=== PATIENT | male | born 1985 | race African-American/Black ===

== ENCOUNTER 2017-06-28 01:28 | Emergency (ER) | payer SELFPAY, BC ==
[2017-06-28] MEDS: predniSONE 20 MG TABLET PO (03:00)
[2017-06-28] MEDS: ALBUTEROL SULFATE 2.5 MG/3 ML NEBU. CONT NEB (03:16)
[2017-06-28] MEDS ORDERED: ONDANSETRON PF 4 MG/2 ML VIAL. IV (04:00)
[2017-06-28] MEDS ORDERED: ACETAMINOPHEN 325 MG TABLET. PO (04:00)
[2017-06-28] MEDS ORDERED: IV NORMAL SALINE 1000ML BAG 1,000 ML IV (04:00)
[2017-06-28] MEDS ORDERED: IPRATRPIUM/ALBUTEROL 0.5/2.5MG 3 ML NEBU. NEB (08:00)
== END 2017-06-28 05:00 | disposition home or self-care (01) ==
LOC: ER 01:28
DX: J45.909 Unspecified asthma, uncomplicated (principal); J11.1 Influenza due to unidentified influenza virus with other respiratory manifestations
CPT/HCPCS: 94644; 99285; J7512; J7613

== ENCOUNTER 2017-09-11 23:56 | Emergency (ER) | payer OTHER ==
[2017-09-12] MEDS: ACETAMINOPHEN 500 MG TABLET PO (00:56)
== END 2017-09-12 01:40 | disposition home or self-care (01) ==
LOC: ER 23:56
DX: S06.0X0A Concussion without loss of consciousness, initial encounter (principal); J45.909 Unspecified asthma, uncomplicated; W22.8XXA Striking against or struck by other objects, initial encounter; Y93.89 Activity, other specified; Y92.89 Other specified places as the place of occurrence of the external cause; Y99.8 Other external cause status
CPT/HCPCS: 70450; 99284-25

== ENCOUNTER 2018-02-06 22:02 | Emergency (ER) | payer SELFPAY ==
[~2018-02-06] VITALS: Ht 167.6 cm; Wt 117.9 kg
[~2018-02-06 22:02] MED LIST: CYCL10TA2 PO; DIAZ5TAB PO; DICY10CA53 PO; HYDR-971 PO; HYDR5SUS PO; IBUP-1007 PO; NAPR-695 PO; ONDA4TAB7 PO; PRED50TA PO; PROAIR HFA8.5 GM INH; PSEU120T58 PO
[2018-02-06 22:20] VITALS: BP 155/74
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
== END 2018-02-07 | disposition home or self-care (01) ==
LOC: ER 22:02
DX: R07.89 Other chest pain (principal); J45.909 Unspecified asthma, uncomplicated
CPT/HCPCS: 71046; 99284

== ENCOUNTER 2018-11-06 23:45 | Emergency (ER) | payer SELFPAY ==
[~2018-11-06] VITALS: Ht 166.4 cm; Wt 120.2 kg
[~2018-11-06 23:45] MED LIST changes: +ALBU2.5V8 INH; +HYDR-3164 PO; -HYDR-971 PO; -PROAIR HFA8.5 GM INH
[2018-11-07] MEDS ORDERED: NAPR-514 PO (00:15)
--- NOTE | 2018-11-07 00:15 | PHYS DOC ---
Past Medical History Past Medical History: Asthma Past Surgical History: No Surgical History Alcohol Use: Occasionally Drug Use: None Adult General Chief Complaint Chief Complaint: CHEST PAIN HPI HPI 33-year-old male presents with several hour history of sharp right sided chest pain. He states it hurts when he takes a deep breath. Also when he stretches his arms out. He denies any fever chills or sweats. He denies any cough or congestion. He denies hemoptysis. He denies any trauma. Patient states he did use Motrin at home with some relief.[] Review of Systems Review of Systems Constitutional: Denies fever or chills [] Eyes: Denies change in visual acuity, redness, or eye pain [] HENT: Denies nasal congestion or sore throat [] Respiratory: Per history of present illness[] Cardiovascular: No additional information not addressed in HPI [] GI: Denies abdominal pain, nausea, vomiting, bloody stools or diarrhea [] : Denies dysuria or hematuria [] Musculoskeletal: Denies back pain or joint pain [] Integument: Denies rash or skin lesions [] Neurologic: Denies headache, focal weakness or sensory changes [] Endocrine: Denies polyuria or polydipsia [] All other systems were reviewed and found to be within normal limits, except as documented in this note. Current Medications Current Medications Current Medications Medications (Trade) Dose Ordered Sig/Haley Start Time Stop Time Status Last Admin Dose Admin Ketorolac Tromethamine (Toradol Im) 60 mg 1X ONCE 11/07/18 00:30 11/07/18 00:31 Allergies Allergies Allergies Coded Allergies Type Severity Reaction Last Updated Verified No Known Drug Allergies 04/20/14 No Physical Exam Physical Exam Constitutional: Well developed, well nourished, no acute distress, non-toxic appearance. [] HENT: Normocephalic, atraumatic, bilateral external ears normal, oropharynx moist, no oral exudates, nose normal. [] Eyes: PERRLA, EOMI, conjunctiva normal, no discharge. [] Neck: Normal range of motion, no tenderness, supple, no stridor. [] Cardiovascular:Heart rate regular rhythm, no murmur [] Lungs & Thorax: Bilateral breath sounds clear to auscultation [] Abdomen: Bowel sounds normal, soft, no tenderness, no masses, no pulsatile masses. [] Skin: Warm, dry, no erythema, no rash. [] Back: No tenderness, no CVA tenderness. [] Extremities: No tenderness, no cyanosis, no clubbing, ROM intact, no edema. [] Neurologic: Alert and oriented X 3, normal motor function, normal sensory function, no focal deficits noted. [] Psychologic: Affect normal, judgement normal, mood normal. [] EKG EKG [] Interpretation Time: EKG: Normal sinus rhythm rate of [address]-T changes Radiology/Procedures Radiology/Procedures [] Impressions: Chest x-ray: No acute findings as interpreted by me Course & Med Decision Making Course & Med Decision Making Pertinent Labs and Imaging studies reviewed. (See chart for details) [ED course: Evaluation reveals a healthy 33-year-old male in no distress. His EKG was completely normal as was his chest x-ray. He was given Toradol 60 mg IM I suspect that this is pleuritic in nature. I've encouraged patient to continue Motrin at home. Dragon Disclaimer Dragon Disclaimer This electronic medical record was generated, in whole or in part, using a voice recognition dictation system. Departure Departure Impression: Primary Impression: Pleurisy Disposition: 01 HOME, SELF-CARE Condition: GOOD Referrals: JUDIT GARRETT MD (PCP) Patient Instructions: Pleurisy Additional Instructions: Return to the emergency department with any new or concerning symptoms Scripts Naproxen (NAPROXEN) 500 Mg Tablet 1 TAB PO BID PRN for PAIN, #30 TAB 1 Refill Prov: CHERRY BURNHAM DO 11/07/18 CHERRY BURNHAM DO Nov 07, 2018 00:15
[2018-11-07 00:24] VITALS: BP 166/87
[2018-11-07] MEDS ORDERED: KETOROLAC 60 MG/2 ML VIAL. IM ONE (00:30)
--- NOTE | 2018-11-07 02:52 | EKG ---
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
--- NOTE | 2018-11-07 08:21 | RAD ---
EXAM: CHEST 1 VIEW. HISTORY: Chest pain. COMPARISON: 02/06/2018. FINDINGS: A frontal view of the chest is obtained. There are no confluent infiltrates. There is no pneumothorax or pleural effusion. The heart is not enlarged. IMPRESSION: 1. No confluent infiltrates. Electronically signed by: Jorge Luis Hector MD (11/07/2018 8:18 AM) [facility]
== END 2018-11-07 00:30 | disposition home or self-care (01) ==
LOC: ER 23:45
DX: R09.1 Pleurisy (principal); J45.909 Unspecified asthma, uncomplicated
CPT/HCPCS: 71045; 93005; 96372; 99284; J1885

== ENCOUNTER 2018-12-05 11:13 | Emergency (ER) | payer SELFPAY ==
[~2018-12-05] VITALS: Ht 167.6 cm; Wt 122.5 kg
[~2018-12-05 11:13] MED LIST changes: +NAPR-514 PO
--- NOTE | 2018-12-05 11:35 | PHYS DOC ---
Past Medical History Past Medical History: Asthma, Bronchitis Past Surgical History: No Surgical History Alcohol Use: Occasionally Drug Use: None Adult General Chief Complaint Chief Complaint: Palpitations HPI HPI Patient is a 33-year-old male who presents to the emergency department for evaluation. He states he was resting, when he suddenly awakened with palpitations, feeling that his heart was beating very fast, and at the same time he developed paresthesias in his right arm. He states his symptoms lasted about a minute and then resolved, and he is feeling much better at this time. He did not have any chest pain at any time, nausea, vomiting, diaphoresis, headache, or vision changes. He does admit to drinking some alcohol yesterday evening, but states he drinks moderately, not heavily. He denies any other complaints at this time. There are no alleviating or exacerbating factors to his symptoms. He has not had any similar symptoms in the past. Review of Systems Review of Systems Constitutional: Denies fever or chills [] Eyes: Denies change in visual acuity, redness, or eye pain [] HENT: Denies nasal congestion or sore throat [] Respiratory: Denies cough or shortness of breath [] Cardiovascular: No additional information not addressed in HPI [] GI: Denies abdominal pain, nausea, vomiting, bloody stools or diarrhea [] : Denies dysuria or hematuria [] Musculoskeletal: Denies back pain or joint pain [] Integument: Denies rash or skin lesions [] Neurologic: Denies headache, focal weakness or current sensory changes [] Endocrine: Denies polyuria or polydipsia [] All other systems were reviewed and found to be within normal limits, except as documented in this note. Allergies Allergies Allergies Coded Allergies Type Severity Reaction Last Updated Verified No Known Drug Allergies 04/20/14 No Physical Exam Physical Exam PHYSICAL EXAM: CONSTITUTIONAL: Well developed, well nourished HEAD: normocephalic, atraumatic EENT: PERRL, EOMI. Conjunctivae normal color, sclerae non-icteric; moist mucous membranes. NECK: Supple, non-tender; no meningismus. LUNGS: Lungs CTA, breathing even and unlabored. Normal air movement. HEART: Regular rate and rhythm, no murmur CHEST: No deformity; non-tender ABDOMEN: The abdomen is soft, and non-tender, no masses or bruits. EXTREM: Normal ROM; no deformity, no calf tenderness. Normal pulses palpable in all extremities. There is no pedal edema. SKIN: No rash; no diaphoresis NEURO: Alert; normal speech and cognition; CN's grossly intact; strength grossly intact without focal deficit. Sensation is grossly intact and symmetrical. BACK: No CVA TTP. Current Patient Data Vital Signs Vital Signs Date Time Temp Pulse Resp B/P (MAP) Pulse Ox O2 Delivery O2 Flow Rate FiO2 12/05/18 11:28 97.4 46 18 144/74 (97) 99 Room Air 97.4 Lab Values Laboratory Tests Test 12/05/18 11:50 White Blood Count 5.8 x10^3/uL (4.0-11.0) Red Blood Count 5.61 x10^6/uL (4.30-5.70) Hemoglobin 15.3 g/dL (13.0-17.5) Hematocrit 44.9 % (39.0-53.0) Mean Corpuscular Volume 80 fL (79-100) Mean Corpuscular Hemoglobin 27 pg (25-35) Mean Corpuscular Hemoglobin Concent 34 g/dL (31-37) Red Cell Distribution Width 13.3 % (11.5-14.5) Platelet Count 283 x10^3/uL (140-400) Neutrophils (%) (Auto) 50 % (31-73) Lymphocytes (%) (Auto) 37 % (24-48) Monocytes (%) (Auto) 10 % (0-9) H Eosinophils (%) (Auto) 3 % (0-3) Basophils (%) (Auto) 1 % (0-3) Neutrophils # (Auto) 2.9 x10^3uL (1.8-7.7) Lymphocytes # (Auto) 2.1 x10^3/uL (1.0-4.8) Monocytes # (Auto) 0.6 x10^3/uL (0.0-1.1) Eosinophils # (Auto) 0.2 x10^3/uL (0.0-0.7) Basophils # (Auto) 0.1 x10^3/uL (0.0-0.2) Laboratory Tests 12/05/18 11:50 EKG EKG [Sinus bradycardia at a rate of 44 beats for minute, normal axis, normal intervals. There are no acute ischemic ST/T changes.] Radiology/Procedures Radiology/Procedures [] Course & Med Decision Making Course & Med Decision Making Pertinent Lab studies reviewed. (See chart for details) []Patient remains stable. I discussed test results, the need for close follow- up, and return precautions. No ectopy noted on monitoring. The patient's heart rate is in the 50s. Dragon Disclaimer Dragon Disclaimer This electronic medical record was generated, in whole or in part, using a voice recognition dictation system. Departure Departure Impression: Primary Impression: Palpitations Disposition: 01 HOME, SELF-CARE Condition: STABLE Referrals: JUDIT GARRETT MD (PCP) ELLO MCKINLEY MD Patient Instructions: Palpitations JUDIT SALAZAR MD Dec 05, 2018 11:35
[2018-12-05 12:05] LABS: BASO # 0.1 x10^3/uL (0.0-0.2); BASO % 1 % (0-3); EOS # 0.2 x10^3/uL (0.0-0.7); EOS % 3 % (0-3); HEMATOCRIT 44.9 % (39.0-53.0); HEMOGLOBIN 15.3 g/dL (13.0-17.5); LYMPH # 2.1 x10^3/uL (1.0-4.8); LYMPH % 37 % (24-48); MEAN CORPUSCULAR HEMOGLOBIN 27 pg (25-35); MEAN CORPUSCULAR HGB CONC 34 g/dL (31-37); MEAN CORPUSCULAR VOLUME 80 fL (79-100); MONO # 0.6 x10^3/uL (0.0-1.1); MONO % 10 % (0-9); NEUT # 2.9 x10^3uL (1.8-7.7); NEUT % 50 % (31-73); PLATELET COUNT 283 x10^3/uL (140-400); RED BLOOD COUNT 5.61 x10^6/uL (4.30-5.70); RED CELL DISTRIBUTION WIDTH 13.3 % (11.5-14.5); WHITE BLOOD COUNT 5.8 x10^3/uL (4.0-11.0)
[2018-12-05 12:16] LABS: GFR 105.5; POTASSIUM 4.1 mmol/L (3.5-5.1)
[2018-12-05 12:21] LABS: ALBUMIN 3.8 g/dL (3.4-5.0); MAGNESIUM 2.1 mg/dL (1.8-2.4); TOTAL BILIRUBIN 0.4 mg/dL (0.2-1.0); TOTAL PROTEIN 7.6 g/dL (6.4-8.2)
[2018-12-05 12:29] LABS: FREE T4 1.21 ng/dL (0.76-1.46); THYROID STIM HORMONE (TSH) 1.565 uIU/mL (0.358-3.74)
[2018-12-05 12:51] VITALS: BP 141/72
--- NOTE | 2018-12-05 15:37 | EKG ---
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
== END 2018-12-05 13:05 | disposition home or self-care (01) ==
LOC: ER 11:13
DX: R00.2 Palpitations (principal); R20.2 Paresthesia of skin; J45.909 Unspecified asthma, uncomplicated
CPT/HCPCS: 36415; 80053; 83735; 84439; 84443; 85025; 93005; 99285-25

== ENCOUNTER 2018-12-09 02:07 | Emergency (ER) | payer SELFPAY ==
[~2018-12-09] VITALS: Ht 167.6 cm; Wt 122.5 kg
[2018-12-09 02:41] LABS: BILIRUBIN,URINE NEGATIVE (NEG); CLARITY,URINE CLEAR; COLOR,URINE YELLOW; NITRITE,URINE NEGATIVE (NEG); PH,URINE 6.5; PROTEIN,URINE NEGATIVE (NEG-TRACE)
[2018-12-09 02:46] LABS: BACTERIA,URINE 0 /HPF (0-FEW); RBC,URINE 0 /HPF (0-2); SQUAMOUS EPITHELIAL CELL,UR OCC /LPF; WBC,URINE 0 /HPF (0-4)
[2018-12-09 02:48] VITALS: BP 195/84
--- NOTE | 2018-12-09 04:01 | PHYS DOC ---
Past Medical History Past Medical History: Asthma, Bronchitis Past Surgical History: No Surgical History Alcohol Use: Occasionally Drug Use: None Adult General Chief Complaint Chief Complaint: WEAKNESS/GENERALIZED HPI HPI Patient is a 33 year old male who is presenting with chief complaint of dizziness intermittent tingling of his extremities. He's been dealing with these symptoms for a long time actually came to the ER a few days ago he had a normal lab workup he was reassured and discharged if she went [facility] the next day so is been to the ER 3 times in 4 days for similar symptoms. He denies any headache he says he just feels lightheaded when he works too much when he standing up for too long he has intermittent tingling of his hand and foot usually on the right currently really not not tingling that much but he was just wanted to get checked out to make sure everything was okay. Review of Systems Review of Systems Constitutional: Denies fever or chills [] Eyes: Denies change in visual acuity, redness, or eye pain [] HENT: Denies nasal congestion or sore throat [] Respiratory: Denies cough or shortness of breath [] Cardiovascular: No additional information not addressed in HPI [] GI: Denies abdominal pain, nausea, vomiting, bloody stools or diarrhea [] : Denies dysuria or hematuria [] Musculoskeletal: Denies back pain or joint pain [] Integument: All other systems were reviewed and found to be within normal limits, except as documented in this note. Allergies Allergies Allergies Coded Allergies Type Severity Reaction Last Updated Verified No Known Drug Allergies 04/20/14 No Physical Exam Physical Exam Constitutional: Well developed, well nourished, no acute distress, non-toxic appearance. [] HENT: Normocephalic, atraumatic, bilateral external ears normal, oropharynx moist, no oral exudates, nose normal. [] Eyes: PERRLA, EOMI, conjunctiva normal, no discharge. [] Neck: Normal range of motion, no tenderness, supple, no stridor. [] Cardiovascular:Heart rate regular rhythm, no murmur [] Lungs & Thorax: Bilateral breath sounds clear to auscultation [] Abdomen: Bowel sounds normal, soft, no tenderness, no masses, no pulsatile masses. [] Skin: Warm, dry, no erythema, no rash. [] Back: No tenderness, no CVA tenderness. [] Extremities: No tenderness, no cyanosis, no clubbing, ROM intact, no edema. [] No edema, pulses Neurologic: Alert and oriented X 3, normal motor function, normal sensory function, no focal deficits noted. []Uivlce-dwwo-smwkgj intact sensations intact neuro exam is normal gait is normal speech is normal Psychologic: Affect normal, judgement normal, mood normal. [] Current Patient Data Vital Signs Vital Signs Date Time Temp Pulse Resp B/P (MAP) Pulse Ox O2 Delivery O2 Flow Rate FiO2 12/09/18 02:48 54 12/09/18 02:15 98.1 20 168/91 (116) 99 98.1 Lab Values Laboratory Tests Test 12/09/18 02:15 Urine Collection Type Unknown Urine Color Yellow Urine Clarity Clear Urine pH 6.5 Urine Specific [place] 1.020 Urine Protein Negative mg/dL (NEG-TRACE) Urine Glucose (UA) Negative mg/dL (NEG) Urine Ketones (Stick) Negative mg/dL (NEG) Urine Blood Negative (NEG) Urine Nitrite Negative (NEG) Urine Bilirubin Negative (NEG) Urine Urobilinogen Dipstick 1.0 mg/dL (0.2 mg/dL) Urine Leukocyte Esterase Negative (NEG) Urine RBC 0 /HPF (0-2) Urine WBC 0 /HPF (0-4) Urine Squamous Epithelial Cells Occ /LPF Urine Bacteria 0 /HPF (0-FEW) EKG EKG []Sinus bradycardia rate of 48 no acute ischemic changes noted interpreted by me the timing encounter Radiology/Procedures Radiology/Procedures [] Course & Med Decision Making Course & Med Decision Making Pertinent Labs and Imaging studies reviewed. (See chart for details) []33-year-old male presenting with likely anxiety type reaction. 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 No objective neurologic findings were identified he had a normal lab workup just a few days ago I don't think we need to repeat that we did a urinalysis chest nontender been done and that appeared normal patient was reassured and discharged in stable condition. Dragon Disclaimer Dragon Disclaimer This electronic medical record was generated, in whole or in part, using a voice recognition dictation system. Departure Departure Impression: Primary Impression: Paresthesias Disposition: HOME, SELF-CARE Condition: STABLE Referrals: JUDIT GARRETT MD (PCP) Patient Instructions: Carmen, [id number] DONNELL SALAS MD Dec 09, 2018 04:01
--- NOTE | 2018-12-09 09:08 | EKG ---
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
[2018-12-13] MEDS ORDERED: ASPI-612 PO (14:12)
== END 2018-12-09 03:05 | disposition home or self-care (01) ==
LOC: ER 02:07
DX: R20.2 Paresthesia of skin (principal); R42 Dizziness and giddiness; R00.1 Bradycardia, unspecified; J45.909 Unspecified asthma, uncomplicated
CPT/HCPCS: 81001; 93005; 99285-25

== ENCOUNTER 2019-01-30 01:53 | Emergency (ER) | payer BC ==
[~2019-01-30] VITALS: Ht 167.6 cm; Wt 120.2 kg
[~2019-01-30 01:53] MED LIST changes: +ASPI-612 PO
[2019-01-30 02:10] VITALS: BP 146/77
[2019-01-30] MEDS ORDERED: IBUP-1060 PO (02:54)
[2019-01-30] MEDS ORDERED: CYCL10TA2 PO (02:54)
--- NOTE | 2019-01-30 02:55 | PHYS DOC ---
Past Medical History Past Medical History: Asthma, Bronchitis Past Surgical History: No Surgical History Alcohol Use: Occasionally Drug Use: None Adult General Chief Complaint Chief Complaint: LOWER EXT PAIN HPI HPI Patient is a 33 year old male who presents with left hip pain. Patient states he was sitting on the bench after playing basketball and suddenly felt a pain in left lateral thigh few hours prior to arrival as a constant pain that getting worse with movement. Patient denies radiation of pain and focal neurodeficit. Patient states he has had history of back pain previously with his pain is different tonight. Review of Systems Review of Systems Constitutional: Denies fever or chills [] Eyes: Denies change in visual acuity, redness, or eye pain [] HENT: Denies nasal congestion or sore throat [] Respiratory: Denies cough or shortness of breath [] Cardiovascular: No additional information not addressed in HPI [] GI: Denies abdominal pain, nausea, vomiting, bloody stools or diarrhea [] : Denies dysuria or hematuria [] Musculoskeletal: Denies back pain reports joint pain [] Integument: Denies rash or skin lesions [] Neurologic: Denies headache, focal weakness or sensory changes [] Endocrine: Denies polyuria or polydipsia [] All other systems were reviewed and found to be within normal limits, except as documented in this note. Current Medications Current Medications Current Medications Medications (Trade) Dose Ordered Sig/Haley Start Time Stop Time Status Last Admin Dose Admin Cyclobenzaprine HCl (Flexeril) 10 mg 1X ONCE 01/30/19 03:00 01/30/19 03:01 DC 01/30/19 02:58 10 MG Ibuprofen (Motrin) 800 mg 1X ONCE 01/30/19 03:00 01/30/19 03:01 DC 01/30/19 02:58 800 MG Allergies Allergies Allergies Coded Allergies Type Severity Reaction Last Updated Verified No Known Drug Allergies 04/20/14 No Physical Exam Physical Exam Constitutional: Well developed, well nourished, mild distress, non-toxic appearance. [] HENT: Normocephalic, atraumatic. Eyes: PERRLA, EOMI, conjunctiva normal, no discharge. [] Neck: Normal range of motion, no tenderness, supple, no stridor. [] Cardiovascular:Heart rate regular rhythm, no murmur [] Lungs & Thorax: Bilateral breath sounds clear to auscultation [] Abdomen: Bowel sounds normal, soft, no tenderness, no masses, no pulsatile masses. [] Skin: Warm, dry, no erythema, no rash. [] Back: No midline tenderness, no CVA tenderness. [] Extremities: No full making, no contusion or ecchymosis, left upper thigh painful range of motion, no clubbing, no edema. [] Neurologic: Alert and oriented X 3, no focal deficits noted. [] Psychologic: Affect normal, judgement normal, mood normal. [] Current Patient Data Vital Signs Vital Signs Date Time Temp Pulse Resp B/P (MAP) Pulse Ox O2 Delivery O2 Flow Rate FiO2 01/30/19 02:10 98.1 98 55 146/77 (100) 98 Room Air 98.1 EKG EKG [] Radiology/Procedures Radiology/Procedures Left hip x-ray interpreted by me and did not show acute finding. Course & Med Decision Making Course & Med Decision Making Pertinent Imaging studies reviewed. (See chart for details) Evaluation of patient in ER showed 33-year-old male patient with complaining of left eye pain after playing basketball. Patient had unremarkable physical exam and x-ray. Plan discharge patient home with diagnosis of muscle strain. Dragon Disclaimer Dragon Disclaimer This electronic medical record was generated, in whole or in part, using a voice recognition dictation system. Departure Departure Impression: Primary Impression: Muscle strain of left thigh Disposition: 01 HOME, SELF-CARE (at 0253) Condition: STABLE Referrals: JOVANY ALERGE MD (PCP) Patient Instructions: Muscle Strain Additional Instructions: Apply ice on affected area Follow-up with your primary care physician in 3-5 days Return to ER if not getting better Scripts Ibuprofen (IBUPROFEN) 800 Mg Tablet 800 MG PO PRN Q8HRS PRN for INFLAMMATION, #20 TAB Prov: VIRI RICE MD 01/30/19 Cyclobenzaprine Hcl (CYCLOBENZAPRINE HCL) 10 Mg Tablet 1 TAB PO TID, #21 TAB Prov: VIRI RICE MD 01/30/19 Problem Qualifiers Primary Impression: Muscle strain of left thigh Encounter type: initial encounter Qualified Codes: S76.912A - Strain of unspecified muscles, fascia and tendons at thigh level, left thigh, initial encounter VIRI RICE MD Jan 30, 2019 02:55
[2019-01-30] MEDS ORDERED: CYCLOBENZAPRINE 10 MG TABLET. PO ONE (03:00)
[2019-01-30] MEDS ORDERED: IBUPROFEN 400 MG TABLET. PO ONE (03:00)
--- NOTE | 2019-01-30 07:32 | RAD ---
Left hip 2 views: Reason for examination: Pain. No fracture or dislocation is seen. The bone density is normal. No abnormal periosteal reaction is seen. Joint spaces are maintained. IMPRESSION: No acute abnormality evident at the left hip. Electronically signed by: Brenda Flores MD (01/30/2019 7:29 AM) [facility] [place]
== END 2019-01-30 03:25 | disposition home or self-care (01) ==
LOC: ER 01:53
DX: S76.912A Strain of unspecified muscles, fascia and tendons at thigh level, left thigh, initial encounter (principal); M25.552 Pain in left hip; J45.909 Unspecified asthma, uncomplicated; X58.XXXA Exposure to other specified factors, initial encounter; Y93.67 Activity, basketball; Y92.89 Other specified places as the place of occurrence of the external cause; Y99.8 Other external cause status
CPT/HCPCS: 73502; 99284

== ENCOUNTER 2019-03-03 01:27 | Emergency (ER) | payer BC ==
[~2019-03-03] VITALS: Ht 167.6 cm; Wt 122.0 kg
[~2019-03-03 01:27] MED LIST changes: +IBUP-1060 PO
[2019-03-03 01:35] VITALS: BP 159/79
--- NOTE | 2019-03-03 03:07 | PHYS DOC ---
Past Medical History Past Medical History: Asthma, Bronchitis Past Surgical History: No Surgical History Alcohol Use: Occasionally Drug Use: None Adult General Chief Complaint Chief Complaint: SHOUDLER HPI HPI Patient is a 33 year old AA right-handed male presents with shoulder pain 3 days. 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 Patient also reports some neck and left lateral lower neck and pain with palpation and range of motion. No other acute symptoms or complaints. Patient is well-known to the emergency department and evaluated emergency department multiple times in past months for various complaints.[] Review of Systems Review of Systems Review symptoms as per history of present illness. All other review symptoms are negative. All other systems were reviewed and found to be within normal limits, except as documented in this note. Current Medications Current Medications Current Medications Medications (Trade) Dose Ordered Sig/Haley Start Time Stop Time Status Last Admin Dose Admin Fluorescein Sodium (Ful-Analilia) 1 strip 1X ONCE 03/03/19 03:30 03/03/19 03:31 Cancel Ibuprofen (Motrin) 600 mg 1X ONCE 03/03/19 03:00 03/03/19 03:01 UNV Tetracaine HCl (Tetracaine) 2 drop 1X ONCE 03/03/19 03:30 03/03/19 03:31 Cancel Allergies Allergies Allergies Coded Allergies Type Severity Reaction Last Updated Verified No Known Drug Allergies 04/20/14 No Physical Exam Physical Exam Constitutional: Well developed, well nourished, no acute distress, non-toxic appearance. [] HENT: Normocephalic, atraumatic, bilateral external ears normal, oropharynx moist, no oral exudates, nose normal. [] Eyes: PERRLA, EOMI, conjunctiva normal, no discharge. [] Neck: Normal range of motion, no midline tenderness, l lower paravertebral pain/tenderness[] Cardiovascular:Heart rate regular rhythm, no murmur [] Lungs & Thorax: Bilateral breath sounds clear to auscultation [] Abdomen: Bowel sounds normal, soft, no tenderness. [] [] Extremities: Left ant shoulder, minimal pain with palpation and on range of motion.. [] Neurologic: Alert and oriented X 3, temperature today, no motor weakness or loss of sensation.. [] Current Patient Data Vital Signs Vital Signs Date Time Temp Pulse Resp B/P (MAP) Pulse Ox O2 Delivery O2 Flow Rate FiO2 03/03/19 01:35 98.7 70 20 159/79 (105) 96 Room Air 98.7 EKG EKG [] Radiology/Procedures Radiology/Procedures [] Course & Med Decision Making Course & Med Decision Making Pertinent Labs and Imaging studies reviewed. (See chart for details) [Soft tissue left shoulder pain. Recommendations are supportive care with PCP or work comp follow-up.] Dragon Disclaimer Dragon Disclaimer This electronic medical record was generated, in whole or in part, using a voice recognition dictation system. Departure Departure Impression: Primary Impression: Sprain of shoulder, left Disposition: HOME, SELF-CARE Condition: STABLE Referrals: JOVANY ALEGRE MD (PCP) Patient Instructions: Shoulder Sprain Additional Instructions: Please take ibuprofen for pain and apply ice to affected area for 20-30 minutes every 2-3 hours. Wear shoulder sling and follow-up with your PCP or work comp physician for further evaluation and review of work place restrictions. VICKI BEARDEN DO Mar 03, 2019 03:07
[2019-03-03] MEDS ORDERED: TETRACAINE 0.5% OPHTH SOLUTION 4ML BOTTLE. OD ONE (03:30)
[2019-03-03] MEDS ORDERED: IBUPROFEN 200 MG TABLET. PO ONE (03:30)
[2019-03-03] MEDS ORDERED: FLUORESCEIN OPHTH TEST STRIP. OD ONE (03:30)
== END 2019-03-03 03:18 | disposition home or self-care (01) ==
LOC: ER 01:27
DX: S43.402A Unspecified sprain of left shoulder joint, initial encounter (principal); J45.909 Unspecified asthma, uncomplicated; X50.9XXA Other and unspecified overexertion or strenuous movements or postures, initial encounter; Y93.89 Activity, other specified; Y92.69 Other specified industrial and construction area as the place of occurrence of the external cause; Y99.0 Civilian activity done for income or pay
CPT/HCPCS: 99282

== ENCOUNTER 2019-04-04 19:24 | Emergency (ER) | payer BC ==
[~2019-04-04] VITALS: Ht 167.6 cm; Wt 122.0 kg
[2019-04-04] MEDS ORDERED: IV NORMAL SALINE 1000ML BAG 1,000 ML IV SCH (19:36)
[2019-04-04] MEDS ORDERED: ONDANSETRON PF 4 MG/2 ML VIAL. IV ONE (19:45)
--- NOTE | 2019-04-04 19:53 | PHYS DOC ---
Past Medical History Past Medical History: Asthma, Bronchitis Past Surgical History: No Surgical History Alcohol Use: Occasionally Drug Use: None Adult General Chief Complaint Chief Complaint: ABDOMINAL PAIN HPI HPI 34-year-old male presents to the emergency Department complaints of vomiting 2, diarrhea 5, achy, congestion, no fever. Patient states nothing makes his pain worse, nothing makes his pain better. Patient is tried no medications at home. Given his persistent diarrhea or vomiting presented to the ER for further evaluation. Patient denies any headache or visual changes. Denies any chest pain or shortness of breath. Review of Systems Review of Systems Constitutional: Denies fever or chills [] Eyes: Denies change in visual acuity, redness, or eye pain [] HENT: Denies nasal congestion or sore throat [] Respiratory: Denies cough or shortness of breath [] Cardiovascular: No additional information not addressed in HPI [] GI: + abdominal pain, nausea, vomiting, bloody stools or diarrhea [] : Denies dysuria or hematuria [] Musculoskeletal: Denies back pain or joint pain [] Neurologic: Denies headache, focal weakness or sensory changes [] All other systems were reviewed and found to be within normal limits, except as documented in this note. Current Medications Current Medications Current Medications Medications (Trade) Dose Ordered Sig/Haley Start Time Stop Time Status Last Admin Dose Admin Dicyclomine HCl (Bentyl) 10 mg 1X ONCE 04/04/19 20:00 04/04/19 20:01 DC 04/04/19 20:30 10 MG Ondansetron HCl (Zofran) 4 mg 1X ONCE 04/04/19 19:45 04/04/19 19:56 DC 04/04/19 20:29 4 MG Sodium Chloride 1,000 ml @ 1,000 mls/hr Q1H 04/04/19 19:36 04/04/19 20:35 DC 04/04/19 20:32 1,000 MLS/HR Allergies Allergies Allergies Coded Allergies Type Severity Reaction Last Updated Verified No Known Drug Allergies 04/20/14 No Physical Exam Physical Exam Constitutional: Well developed, well nourished, no acute distress, non-toxic appearance. [] HENT: Normocephalic, atraumatic, bilateral external ears normal, oropharynx moist, no oral exudates, nose normal. [] Eyes: PERRLA, EOMI, conjunctiva normal, no discharge. [] Neck: Normal range of motion, no tenderness, supple, no stridor. [] Cardiovascular:Heart rate regular rhythm, no murmur [] Lungs & Thorax: Bilateral breath sounds clear to auscultation [] Abdomen: Bowel sounds normal, soft, no tenderness, no masses, no pulsatile masses. [] Skin: Warm, dry, no erythema, no rash. [] Back: No tenderness, no CVA tenderness. [] Extremities: No tenderness, no edema. [] Neurologic: Alert and oriented X 3, no focal deficits noted. [] Psychologic: Affect normal, judgement normal, mood normal. [] Current Patient Data Vital Signs Vital Signs Date Time Temp Pulse Resp B/P (MAP) Pulse Ox O2 Delivery O2 Flow Rate FiO2 04/04/19 19:30 98.0 60 16 146/69 (94) 99 Room Air 98.0 Lab Values Laboratory Tests Test 04/04/19 19:26 04/04/19 19:47 Urine Collection Type Void Urine Color Yellow Urine Clarity Clear Urine pH 7.5 Urine Specific English 1.025 Urine Protein Negative mg/dL (NEG-TRACE) Urine Glucose (UA) Negative mg/dL (NEG) Urine Ketones (Stick) Negative mg/dL (NEG) Urine Blood Negative (NEG) Urine Nitrite Negative (NEG) Urine Bilirubin Negative (NEG) Urine Urobilinogen Dipstick 1.0 mg/dL (0.2 mg/dL) Urine Leukocyte Esterase Negative (NEG) Urine RBC 0 /HPF (0-2) Urine WBC 0 /HPF (0-4) Urine Squamous Epithelial Cells Few /LPF Urine Bacteria 0 /HPF (0-FEW) Urine Mucus Marked /LPF White Blood Count 7.3 x10^3/uL (4.0-11.0) Red Blood Count 5.20 x10^6/uL (4.30-5.70) Hemoglobin 14.3 g/dL (13.0-17.5) Hematocrit 42.0 % (39.0-53.0) Mean Corpuscular Volume 81 fL (79-100) Mean Corpuscular Hemoglobin 28 pg (25-35) Mean Corpuscular Hemoglobin Concent 34 g/dL (31-37) Red Cell Distribution Width 13.8 % (11.5-14.5) Platelet Count 270 x10^3/uL (140-400) Neutrophils (%) (Auto) 60 % (31-73) Lymphocytes (%) (Auto) 28 % (24-48) Monocytes (%) (Auto) 9 % (0-9) Eosinophils (%) (Auto) 3 % (0-3) Basophils (%) (Auto) 1 % (0-3) Neutrophils # (Auto) 4.3 x10^3/uL (1.8-7.7) Lymphocytes # (Auto) 2.0 x10^3/uL (1.0-4.8) Monocytes # (Auto) 0.7 x10^3/uL (0.0-1.1) Eosinophils # (Auto) 0.2 x10^3/uL (0.0-0.7) Basophils # (Auto) 0.1 x10^3/uL (0.0-0.2) Sodium Level 140 mmol/L (136-145) Potassium Level 3.9 mmol/L (3.5-5.1) Chloride Level 103 mmol/L (98-107) Carbon Dioxide Level 28 mmol/L (21-32) Anion Gap 9 (6-14) Blood Urea Nitrogen 15 mg/dL (8-26) Creatinine 1.0 mg/dL (0.7-1.3) Estimated GFR (Cockcroft-Gault) 104.8 BUN/Creatinine Ratio 15 (6-20) Glucose Level 120 mg/dL (70-99) H Calcium Level 8.5 mg/dL (8.5-10.1) Total Bilirubin 0.3 mg/dL (0.2-1.0) Aspartate Amino Transferase (AST) 24 U/L (15-37) Alanine Aminotransferase (ALT) 26 U/L (16-63) Alkaline Phosphatase 84 U/L (46-116) Total Protein 7.5 g/dL (6.4-8.2) Albumin 3.8 g/dL (3.4-5.0) Albumin/Globulin Ratio 1.0 (1.0-1.7) Laboratory Tests 04/04/19 19:47 Laboratory Tests 04/04/19 19:47 EKG EKG [] Radiology/Procedures Radiology/Procedures [] Course & Med Decision Making Course & Med Decision Making Pertinent Labs and Imaging studies reviewed. (See chart for details) []34-year-old male presents to the emergency Department complaints of vomiting 2, diarrhea 5, achy, congestion, no fever. Patient states nothing makes his pain worse, nothing makes his pain better. Patient is tried no medications at home. Given his persistent diarrhea or vomiting presented to the ER for further evaluation. Patient denies any headache or visual changes. Denies any chest pain or shortness of breath. Labs reviewed and normal Toradol/Bentyl given in ER IVF 1 liter Plan bentyl and zofran upon discharge Overall improved Dragon Disclaimer Dragon Disclaimer This electronic medical record was generated, in whole or in part, using a voice recognition dictation system. Departure Departure Impression: Primary Impression: Nausea and vomiting Additional Impression: Abdominal pain Disposition: HOME, SELF-CARE Condition: IMPROVED Referrals: JOVANY ALEGRE MD (PCP) Patient Instructions: Nausea and Vomiting, [id number] Additional Instructions: Recommend follow up with PCP 3 - 5 days Return to the ER with worsening symptoms, intractable pain, fever, altered mental status Tylenol/Motrin as needed for pain Zofran and Bentyl rx provided for nausea and pain respectively Scripts Dicyclomine Hcl (DICYCLOMINE HCL) 20 Mg Tablet 1 TAB PO TID, #30 TAB 1 Refill Prov: DIANELYS WARREN MD 04/04/19 Ondansetron Hcl (ZOFRAN) 4 Mg Tablet 1 TAB PO PRN Q6-8HRS, #12 TAB Prov: DIANELYS WARREN MD 04/04/19 Problem Qualifiers Primary Impression: Nausea and vomiting Vomiting type: unspecified Vomiting Intractability: unspecified Qualified Codes: R11.2 - Nausea with vomiting, unspecified Additional Impression: Abdominal pain Abdominal location: generalized Qualified Codes: R10.84 - Generalized abdominal pain DIANELYS WARREN MD Apr 04, 2019 19:53
[2019-04-04] MEDS ORDERED: DICYCLOMINE 20 MG/2 ML AMPUL. IM ONE (20:00)
[2019-04-04 20:03] LABS: BASO # 0.1 x10^3/uL (0.0-0.2); BASO % 1 % (0-3); EOS # 0.2 x10^3/uL (0.0-0.7); EOS % 3 % (0-3); HEMOGLOBIN 14.3 g/dL (13.0-17.5); LYMPH % 28 % (24-48); MEAN CORPUSCULAR HEMOGLOBIN 28 pg (25-35); MEAN CORPUSCULAR HGB CONC 34 g/dL (31-37); MEAN CORPUSCULAR VOLUME 81 fL (79-100); MONO # 0.7 x10^3/uL (0.0-1.1); MONO % 9 % (0-9); NEUT # 4.3 x10^3/uL (1.8-7.7); NEUT % 60 % (31-73); PLATELET COUNT 270 x10^3/uL (140-400); RED CELL DISTRIBUTION WIDTH 13.8 % (11.5-14.5); WHITE BLOOD COUNT 7.3 x10^3/uL (4.0-11.0)
[2019-04-04 20:05] LABS: BILIRUBIN,URINE NEGATIVE (NEG); CLARITY,URINE CLEAR; COLOR,URINE YELLOW; NITRITE,URINE NEGATIVE (NEG); PH,URINE 7.5; PROTEIN,URINE NEGATIVE (NEG-TRACE)
[2019-04-04 20:11] LABS: BACTERIA,URINE 0 /HPF (0-FEW); RBC,URINE 0 /HPF (0-2); SQUAMOUS EPITHELIAL CELL,UR FEW /LPF; WBC,URINE 0 /HPF (0-4)
[2019-04-04 20:17] LABS: CALCIUM 8.5 mg/dL (8.5-10.1); GFR 104.8; POTASSIUM 3.9 mmol/L (3.5-5.1)
[2019-04-04 20:22] LABS: ALBUMIN 3.8 g/dL (3.4-5.0); TOTAL BILIRUBIN 0.3 mg/dL (0.2-1.0); TOTAL PROTEIN 7.5 g/dL (6.4-8.2)
[2019-04-04] MEDS ORDERED: DICY20TA3 PO (21:21)
[2019-04-04] MEDS ORDERED: ONDA4TAB7 PO (21:21)
[2019-04-04 21:45] VITALS: BP 134/90
== END 2019-04-04 21:50 | disposition home or self-care (01) ==
LOC: ER 19:24
DX: R11.2 Nausea with vomiting, unspecified (principal); R10.84 Generalized abdominal pain; R19.7 Diarrhea, unspecified; J45.909 Unspecified asthma, uncomplicated
CPT/HCPCS: 36415; 80053; 81001; 85025; 96361; 96372; 96374; 99284; J0500; J2405; J7030

== ENCOUNTER 2019-06-16 00:27 | Emergency (ER) | payer SELFPAY ==
[~2019-06-16 00:27] MED LIST changes: +DICY20TA3 PO
[2019-06-16 00:42] VITALS: BP 149/91
--- NOTE | 2019-06-16 00:54 | PHYS DOC ---
Past Medical History Past Medical History: Asthma, Bronchitis Additional Past Medical Histor: hypoglycemia Past Surgical History: No Surgical History Alcohol Use: Occasionally Drug Use: None Adult General Chief Complaint Chief Complaint: HAND PROBLEM HPI HPI 34-year-old male presents to the emergency Department complaints of left hand injury after playing basketball. Patient states he was passing subsequently sounds if he hyperextended his left fifth digit with pain. He is able to complete range of motion however with pain. No significant deformity appreciated , tenderness to palpation of the metacarpal. Patient denies any numbness or tingling. Movements make his symptoms worse. Nothing makes his symptoms better. Review of Systems Review of Systems Constitutional: Denies fever or chills [] Respiratory: Denies cough or shortness of breath [] Cardiovascular: No additional information not addressed in HPI [] Musculoskeletal: left 5th metacarpal pain Integument: Denies rash or skin lesions [] All other systems were reviewed and found to be within normal limits, except as documented in this note. Allergies Allergies Allergies Coded Allergies Type Severity Reaction Last Updated Verified No Known Drug Allergies 04/20/14 No Physical Exam Physical Exam Constitutional: Well developed, well nourished, no acute distress, non-toxic appearance. [] HENT: Normocephalic, atraumatic, bilateral external ears normal, nose normal. [] Cardiovascular:Heart rate regular rhythm, no murmur [] Lungs & Thorax: Bilateral breath sounds clear to auscultation [] Skin: Warm, dry, no erythema, no rash. [] Extremities: No tenderness, no edema, TTP left 5th metacarpal [] Neurologic: Alert and oriented X 3, no focal deficits noted. [] Psychologic: Affect normal, judgement normal, mood normal. [] Current Patient Data Vital Signs Vital Signs Date Time Temp Pulse Resp B/P (MAP) Pulse Ox O2 Delivery O2 Flow Rate FiO2 06/16/19 00:42 98.7 77 20 149/91 (110) 97 Room Air 98.7 EKG EKG [] Radiology/Procedures Radiology/Procedures xray wet read without evidence of acute fracture[] Course & Med Decision Making Course & Med Decision Making Pertinent Labs and Imaging studies reviewed. (See chart for details) [] 34-year-old male presents to the emergency Department complaints of left hand injury after playing basketball. Patient states he was passing subsequently sounds if he hyperextended his left fifth digit with pain. He is able to c omplete range of motion however with pain. No significant deformity appreciated, tenderness to palpation of the metacarpal. Patient denies any numbness or tingling. Movements make his symptoms worse. Nothing makes his symptoms better. Xray negative for acute fracture - likely hyperextension Plan for dc home Return precautions provided PRN medications as needed for pain Dragon Disclaimer Dragon Disclaimer This electronic medical record was generated, in whole or in part, using a voice recognition dictation system. Departure Departure Impression: Primary Impression: Hyperextension injury of finger Disposition: HOME, SELF-CARE Condition: STABLE Referrals: JOVANY ALEGRE MD (PCP) Patient Instructions: Hand Injuries, [id number] Additional Instructions: Recommend follow up with PCP 3 - 5 days Return to the ER with worsening symptoms, intractable pain, fever, altered mental status Tylenol/Motrin as needed for pain Xray negative for acute fracture, likely hyperextension Problem Qualifiers Primary Impression: Hyperextension injury of finger Encounter type: initial encounter Laterality: left Qualified Codes: S69.82XA - Other specified injuries of left wrist, hand and finger(s), ini tial encounter DIANELYS WARREN MD Jun 16, 2019 00:53
--- NOTE | 2019-06-16 05:13 | RAD ---
Left hand 2 views: Reason for examination: Left hand injury. No acute fracture or dislocation is seen. The bone density is normal. No abnormal periosteal reaction is seen. Joint spaces are maintained. IMPRESSION: No acute abnormality evident in the left hand. Electronically signed by: Brenda Flores MD (06/16/2019 5:10 AM) [facility]
== END 2019-06-16 02:21 | disposition home or self-care (01) ==
LOC: ER 00:27
DX: S69.82XA Other specified injuries of left wrist, hand and finger(s), initial encounter (principal); J45.909 Unspecified asthma, uncomplicated; W21.05XA Struck by basketball, initial encounter; Y93.89 Activity, other specified; Y92.89 Other specified places as the place of occurrence of the external cause; Y99.8 Other external cause status
CPT/HCPCS: 73120; 99284

== ENCOUNTER 2019-06-26 18:26 | Emergency (ER) | payer SELFPAY ==
[~2019-06-26] VITALS: Ht 167.6 cm; Wt 265.0 kg
[2019-06-26 19:38] VITALS: BP 156/107
--- NOTE | 2019-06-26 21:44 | PHYS DOC ---
Past Medical History Past Medical History: Asthma, Bronchitis Additional Past Medical Histor: hypoglycemia (JOVANY CARMONA APRN) Past Surgical History: No Surgical History (JOVANY CARMONA APRN) Alcohol Use: Occasionally Drug Use: None (JOVANY CARMONA APRN) Attending Signature I have participated in the care of this patient and I have reviewed and agree with all pertinent clinical information above including history, exam, and recommendations. (DIANELYS WARREN MD) Adult General Chief Complaint Chief Complaint: HEADACHE HPI HPI Patient is a 34 year old male who presents with fever, loss of appetite, body aches, nausea, vomiting, sore throat, runny nose, cough that started 3 days ago. Patient has been able to drink water at home. Patient has been using Tylenol for fever control. Complete ROS were reviewed and found to be within normal limits, except as documented in the HPI (JOVANY CARMONA APRN) Allergies Allergies Allergies Coded Allergies Type Severity Reaction Last Updated Verified No Known Drug Allergies 04/20/14 No (DIANELYS WARREN MD) Physical Exam Physical Exam Constitutional: Well developed, well nourished, no acute distress, non-toxic appearance. [] HENT: Normocephalic, atraumatic, bilateral external ears normal, bilateral tympanic membranes are pearly tubbs, oropharynx moist, no oral exudates, nose turbinates are inflamed. Eyes: PERRLA, EOMI, conjunctiva normal, no discharge. [] Neck: Normal range of motion, no tenderness, supple, no stridor. [] Cardiovascular:Heart rate regular rhythm, no murmur [] Lungs & Thorax: Bilateral breath sounds clear to auscultation [] Abdomen: Bowel sounds normal, soft, no tenderness, no masses, no pulsatile masses. [] Skin: Warm, dry, no erythema, no rash. [] Neurologic: Alert and oriented X 3, normal motor function, normal sensory function, no focal deficits noted. [] Psychologic: Affect normal, judgement normal, mood normal. [] (JOVANY CARMONA APRN) Current Patient Data Vital Signs Vital Signs Date Time Temp Pulse Resp B/P (MAP) Pulse Ox O2 Delivery O2 Flow Rate FiO2 06/26/19 19:38 97.8 59 19 156/107 (123) 98 Room Air 97.8 (DIANELYS WARREN MD) EKG EKG [] (JOVANY CARMONA APRN) Radiology/Procedures Radiology/Procedures [] (JOVANY CARMONA APRN) Course & Med Decision Making Course & Med Decision Making Pertinent Labs and Imaging studies reviewed. (See chart for details) The patient appears to have the Flu clinically. Discussed with patient the importance of drinking plenty of fluids. I also discussed the importance of rest. It was discussed with the patient that she is contagious and to stay away from others until it has been a week since the start of her symptoms. Discussed with the patient that she can take Zyrtec per label instructions for runny nose. Also discussed the proper control of fever by rotating Tylenol and Ibuprofen at home. A medical screening exam was performed on this patient and the patient does not appear to be having a medical emergency. Her symptoms are not of sufficient severity and within reasonable medical probability it is unlikely the absence of immediate medical attention would result in placing the health of the individual (or, with respect to a woman, the health of the woman or her unborn child) in serious jeopardy, serious impairment to bodily functions, or serious dysfunction of any bodily organ or part. If , the patient is not in labor (JOVANY CARMONA APRN) Dragon Disclaimer Dragon Disclaimer This electronic medical record was generated, in whole or in part, using a voice recognition dictation system. (JOVANY CARMONA APRN) Departure Departure Impression: Primary Impression: Viral syndrome Additional Impression: Encounter for medical screening examination Disposition: HOME, SELF-CARE Condition: STABLE Referrals: JOVANY ALEGRE MD (PCP) Patient Instructions: Viral Syndrome Additional Instructions: Thank you for visiting [facility]. We appreciate you trusting us with your care. If any additional problems come up don't hesitate to return to visit us. Please follow up with your primary care provider so they can plan additional care if needed and know about the problem that you had. If symptoms worsen come back to the Emergency Department. Any concerning symptoms that start such as chest pain, shortness of air, weakness or numbness on one side of the body, running high fevers or any other concerning symptoms return to the ER. Problem Qualifiers JOVANY CARMONA APRN Jun 26, 2019 21:44 DIANELYS WARREN MD Jun 27, 2019 00:54
== END 2019-06-26 20:45 | disposition home or self-care (01) ==
LOC: ER 18:26
DX: B34.9 Viral infection, unspecified (principal); R11.2 Nausea with vomiting, unspecified; R63.0 Anorexia; R50.9 Fever, unspecified; R09.89 Other specified symptoms and signs involving the circulatory and respiratory systems; R05 Cough; J45.909 Unspecified asthma, uncomplicated
CPT/HCPCS: 99281

== ENCOUNTER 2020-02-18 18:36 | Emergency (ER) | payer SELFPAY ==
[~2020-02-18] VITALS: Ht 167.6 cm; Wt 120.0 kg
[~2020-02-18 18:36] MED LIST changes: -ASPI-612 PO; +ASPI-886 PO
[2020-02-18 19:53] VITALS: BP 139/89
[2020-02-18] MEDS ORDERED: IBUP-1007 PO (20:19)
[2020-02-18] MEDS ORDERED: ORPH100T PO (20:19)
--- NOTE | 2020-02-18 20:19 | PHYS DOC ---
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 He states that this morning he awoke with right mid upper back pain after lif ting last night. He states that last night he felt a slight twinge but this morning woke up and it was hurting. He rates his pain a 7 out of 10 and states is spasming. He denies radiation of the pain. States he has not taken any medications to help with the pain. He states he needs a work note. He has a history of asthma, bronchitis, hypoglycemia. He states the pain is worse with movement. Patient denies any numbness or tingling, neck pain, loss of bowel bladder, chest pain, cough, abdominal pain, nausea, vomiting, diarrhea, dysuria symptoms. 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 [] Eyes: Denies change in visual acuity. [] HENT: Denies nasal congestion or sore throat. [] Respiratory: Denies cough or shortness of breath. [] Cardiovascular: Denies chest pain or edema. [] GI: Denies abdominal pain, nausea, vomiting, bloody stools or diarrhea. [] : Denies dysuria. [] Musculoskeletal: Right mid back pain or joint pain. [] Integument: Denies rash. [] Neurologic: Denies headache, focal weakness or sensory changes. [] Endocrine: Denies polyuria or polydipsia. [] Lymphatic: Denies swollen glands. [] Psychiatric: Denies depression or anxiety. [] (JAMES TRAN APRN) Heart Score: Risk Factors: Risk Factors: DM, Current or recent (<one month) smoker, HTN, HLP, family history of CAD, obesity. Risk Scores: Score 0 - 3: 2.5% MACE over next 6 weeks - Discharge Home Score 4 - 6: 20.3% MACE over next 6 weeks - Admit for Clinical Observation Score 7 - 10: 72.7% MACE over next 6 weeks - Early Invasive Strategies (JAMES TRAN APRN) Allergies: Allergies: Allergies Coded Allergies Type Severity Reaction Last Updated Verified No Known Drug Allergies 04/20/14 No (JAMES TRAN APRN) Physical Exam: PE: Constitutional: Well developed, well nourished, no acute distress, non-toxic appearance. [] HENT: Normocephalic, atraumatic, bilateral external ears normal, oropharynx moist, no oral exudates, nose normal. [] Eyes: PERRLA, EOMI, conjunctiva normal, no discharge. [] Neck: Normal range of motion, no tenderness, supple, no stridor. [] Cardiovascular:Heart rate regular rhythm, no murmur [] Lungs & Thorax: Bilateral breath sounds clear to auscultation [] Abdomen: Bowel sounds normal, soft, no tenderness, no masses, no pulsatile masses. [] Skin: Warm, dry, no erythema, no rash. [] Back: Right mid back tenderness, no CVA tenderness. [] Extremities: No tenderness, no cyanosis, no clubbing, ROM intact, no edema. [] Neurologic: Alert and oriented X 3, normal motor function, normal sensory function, no focal deficits noted. [] Psychologic: Affect normal, judgement normal, mood normal. 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 (See chart for details) Alert and oriented x4. Ambulatory with a steady gait. Speaks in full complete sentences. Moving all extremities normally and equally. Patient does have some slight tenderness at that right mid back area. No focal spiny tenderness. Patient is discharged home with ibuprofen and orphenadrine. Patient follow-up with primary care provider. 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 I was available for consultation as needed during the patient's visit in the emergency department. I agree with the clinical impression, plans and disposition. (BK MADDOX MD) Dragon Disclaimer: Dragon Disclaimer: This electronic medical record was generated, in whole or in part, using a voice recognition dictation system. (JAMES TRAN APRN) Departure Departure Impression: Primary Impression: Back strain Qualified Codes: S39.012A - Strain of muscle, fascia and tendon of lower back, initial encounter Disposition: HOME, SELF-CARE Condition: STABLE Referrals: JOVANY ALEGRE MD (PCP) Patient Instructions: Low Back Strain with Rehab-SportsMed Additional Instructions: Use ice and heat to help with your pain. Take medication as prescribed and with food. Remember the orphenadrine muscle relaxer will make you sleepy. You should not drive, drink alcohol or work with this medication. Scripts Orphenadrine Citrate (ORPHENADRINE CITRATE) 100 Mg Tablet.er 1 TAB PO BID, #14 TAB Prov: JAMES TRAN APRN 02/18/20 Ibuprofen (IBUPROFEN) 600 Mg Tablet 600 MG PO PRN Q6HRS PRN for INFLAMMATION, #20 TAB Prov: JAMES TRAN APRN 02/18/20 Justicifation of Admission Dx: Justifications for Admission: Justification of Admission Dx: N/A (JAMES TRAN APRN) JAMES TRAN APRN Feb 18, 2020 20:19 BK MADDOX MD Feb 18, 2020 21:02
== END 2020-02-18 20:26 | disposition home or self-care (01) ==
LOC: ER 18:36
DX: S39.012A Strain of muscle, fascia and tendon of lower back, initial encounter (principal); J45.909 Unspecified asthma, uncomplicated; X50.0XXA Overexertion from strenuous movement or load, initial encounter; Y93.89 Activity, other specified; Y92.89 Other specified places as the place of occurrence of the external cause; Y99.8 Other external cause status
CPT/HCPCS: 99283

== ENCOUNTER 2021-09-18 19:00 | Emergency (ER) | payer SELFPAY ==
[~2021-09-18] VITALS: Ht 167.6 cm; Wt 127.3 kg
[2021-09-18 19:00] VITALS: BP 157/104
[~2021-09-18 19:00] MED LIST changes: +CYCL10TA19 PO; -CYCL10TA2 PO; +DICY20TA PO; -DICY20TA3 PO; +ORPH100T PO
--- NOTE | 2021-09-18 19:10 | PHYS DOC ---
Past Medical History Past Medical History: Asthma, Bronchitis Additional Past Medical Histor: hypoglycemia Past Surgical History: No Surgical History Smoking Status: Never Smoker Alcohol Use: Occasionally Drug Use: None General Adult EDM: Chief Complaint: ELBOW PROBLEM HPI: HPI: Patient is a 36 year old male who presents the ED today complaining of 8 out of 10 right shoulder pain, symptoms began 5 days ago after he accidentally hit his right shoulder on a cart at work. Patient describes the pain as sharp and intermittent worse on extension of the right shoulder. Denies anything specifically relieving the pain. Review of Systems: Review of Systems: Constitutional: Denies fever or chills. [] Musculoskeletal: Reports right shoulder pain Integument: Denies rash. [] Neurologic: Denies headache, focal weakness or sensory changes. [] [] Psychiatric: Denies depression or anxiety. [] Heart Score: C/O Chest Pain: N/A Risk Factors: Risk Factors: DM, Current or recent (<one month) smoker, HTN, HLP, family history of CAD, obesity. Risk Scores: Score 0 - 3: 2.5% MACE over next 6 weeks - Discharge Home Score 4 - 6: 20.3% MACE over next 6 weeks - Admit for Clinical Observation Score 7 - 10: 72.7% MACE over next 6 weeks - Early Invasive Strategies Allergies: Allergies: Allergies Coded Allergies Type Severity Reaction Last Updated Verified No Known Drug Allergies 04/20/14 No Physical Exam: PE: Constitutional: Well developed, well nourished, no acute distress, non-toxic appearance. [] Skin: Warm, dry, no erythema, no rash. [] Back: No tenderness, no CVA tenderness. [] Extremities: Right elbow with no obvious deformity, tenderness on the olecranon process, full passive as well as active range of motion to the right elbow, adequate radial, medial, ulnar sensation to the right fingers, +2 right radial pulse. Cap refills less than 2 seconds to right fingers Neurologic: Alert and oriented X 3, normal motor function, normal sensory function, no focal deficits noted. [] Psychologic: Affect normal, judgement normal, mood normal. [] EKG: EKG: [] Radiology/Procedures: Radiology/Procedures: []PROCEDURE: ELBOW RIGHT 3V Exam: Right elbow 3 views INDICATION: Pain TECHNIQUE: Frontal, lateral oblique views of the right elbow Comparisons: None FINDINGS: Bone mineralization is normal. No acute or healed fractures. Soft tissues are unremarkable. Joint spaces are well-maintained. IMPRESSION: No acute osseous abnormality. Electronically signed by: Talia Galloway MD (09/18/2021 8:00 PM) [facility] DICTATED and SIGNED BY: TALIA GALLOWAY MD DATE: 09/18/211956 Course & Med Decision Making: Course & Med Decision Making Pertinent Labs and Imaging studies reviewed. (See chart for details) This a 36-year-old male patient who presents to the ED today with right elbow pain that began 5 days ago after he hit it on a cart at work. Right elbow x- rays are negative for any acute findings. Terrell wrap applied to the right elbow by the ED RN, neurovascular exam done by the RN is normal. Ice elevation encouraged. Follow-up with Ortho in 1 week if pain persist, OTC pain relievers. Dragon Disclaimer: Dragon Disclaimer: This electronic medical record was generated, in whole or in part, using a voice recognition dictation system. Departure Departure Impression: Primary Impression: Contusion of right shoulder Qualified Codes: S40.011A - Contusion of right shoulder, initial encounter Disposition: HOME / SELF CARE / HOMELESS Condition: STABLE Referrals: JOVANY ALEGRE MD (PCP) Patient Instructions: Shoulder Pain, [id number] Additional Instructions: You were evaluated in the emergency room for right elbow pain. Your right elbow x-rays are negative for any acute findings. You can wrap your right elbow with an Terrell bandage as tolerated. You can take the prescribed medications as needed for pain. Follow-up with your own doctor or the provided orthopedic doctor in 1 to 2 weeks if pain persists Scripts Diclofenac Potassium (DICLOFENAC POTASSIUM) 50 Mg Tablet 1 TAB PO BID, #20 TAB 1 Refill Prov: NASRIN HUERTA APRN 09/18/21 NASRIN HUERTA APRN Sep 18, 2021 19:10
--- NOTE | 2021-09-18 20:02 | RAD ---
Exam: Right elbow 3 views INDICATION: Pain TECHNIQUE: Frontal, lateral oblique views of the right elbow Comparisons: None FINDINGS: Bone mineralization is normal. No acute or healed fractures. Soft tissues are unremarkable. Joint spa elizabeth are well-maintained. IMPRESSION: No acute osseous abnormality. Electronically signed by: Talia Storey MD (09/18/2021 8:00 PM) [facility]
[2021-09-18] MEDS ORDERED: DICL50TA2 PO (20:13)
== END 2021-09-18 20:19 | disposition home or self-care (01) ==
LOC: ER 19:00
DX: S40.011A Contusion of right shoulder, initial encounter (principal); M25.521 Pain in right elbow; J45.909 Unspecified asthma, uncomplicated; W22.8XXA Striking against or struck by other objects, initial encounter; Y93.89 Activity, other specified; Y92.69 Other specified industrial and construction area as the place of occurrence of the external cause; Y99.0 Civilian activity done for income or pay
CPT/HCPCS: 73080; 99283